=== PATIENT | female | born 1980 | race Caucasian/White ===

== ENCOUNTER 2016-10-26 09:14 | Emergency (ER) | payer OTHER ==
[2016-10-26 09:23] VITALS: BP 114/68
--- NOTE | 2016-10-26 09:31 | EDM.PDOC ---
ED HPI GENERAL MEDICAL PROBLEM - General Chief Complaint: Genitourinary Problem Stated Complaint: ? BLADDER INFECTION Time Seen by Provider: 10/26/16 09:27 Source of Information: Reports: Patient History Limitations: Reports: No Limitations - History of Present Illness INITIAL COMMENTS - FREE TEXT/NARRATIVE: 35 yo female who presents with burning, frequency and pain with urination since 5pm yesterday. States that pain and burning is at the end of her stream. Pressure with sitting that cause the sensation of having to urinate. 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 ED EXAM, RENAL/ - Physical Exam Exam: See Below Exam Limited By: No Limitations General Appearance: Alert, WD/WN, No Apparent Distress Respiratory/Chest: No Respiratory Distress, Lungs Clear, Normal Breath Sounds, No Accessory Muscle Use, Chest Non-Tender Cardiovascular: Normal Peripheral Pulses, Regular Rate, Rhythm, No Edema, No Gallop, No JVD, No Murmur, No Rub GI/Abdominal: Normal Bowel Sounds, Soft, No Organomegaly, No Distention, No Abnormal Bruit, No Mass, Tender (mild to suprapubic area) Back Exam: Normal Inspection (no CVA tenderness), Full Range of Motion, NT Neurological: Alert, Oriented, CN II-XII Intact, Normal Cognition, Normal Gait, Normal Reflexes, No Motor/Sensory Deficits Course - Vital Signs Last Recorded V/S: Last Vital Signs Temp 98.0 F 10/26/16 09:23 Pulse 74 10/26/16 09:23 Resp 18 10/26/16 09:23 BP 114/68 10/26/16 09:23 Pulse Ox 99 10/26/16 09:23 - Orders/Labs/Meds Labs: Laboratory Tests 10/26/16 10/26/16 Range/Units 09: 09:15 Urine Color Yellow (YELLOW) Urine Appearance Clear (CLEAR) Urine pH 6.0 (5.0-9.0) Ur Specific [place] <= 1.005 (1.005-1.030) Urine Protein Negative (NEGATIVE) Urine Glucose (UA) Negative (NEGATIVE) Urine Ketones Negative (NEGATIVE) Urine Occult Blood Moderate H (NEGATIVE) Urine Nitrite Negative (NEGATIVE) Urine Bilirubin Negative (NEGATIVE) Urine Urobilinogen 0.2 (0.2-1.0) mg/dL Ur Leukocyte Esterase Small H (NEGATIVE) Urine RBC 0-5 /HPF Urine WBC 5-10 H (0-5/HPF) /HPF Ur Epithelial Cells Rare /HPF Urine Bacteria Rare (0-FEW/HPF) /HPF Urine Mucus Not seen /LPF Urine HCG, Qual Negative Meds: Medications Discontinued Medications Generic Name Dose Route Start Last Admin Trade Name Freq PRN Reason Stop Dose Admin Nitrofurantoin Macrocrystals 100 mg 10/26/16 09:43 Macrobid PO 10/26/16 09:44 ONETIME ONE Phenazopyridine HCl 190 mg 10/26/16 09:43 Urinary Pain Relief PO 10/26/16 09:44 ONETIME ONE Departure - Departure Time of Disposition: 09:47 Disposition: Home, Self-Care 01 Condition: Good Clinical Impression: UTI, Urinary tract infectious disease - Discharge Information Instructions: Urinary Tract Infection, Adult, [id number] Forms: ED Department Discharge Additional Instructions: Continue to drink plenty of fluids. Take medication as prescribed. Return for worsening symptoms. Follow up with your PCP if no improvement in 5 days
[2016-10-26] MEDS ORDERED: Nitrofurantoin Monohydrate/Macrocrystalline 100 MG Cap PO ONE (09:43)
[2016-10-26] MEDS ORDERED: Phenazopyridine 95 MG Tab PO ONE (09:43)
== END 2016-10-26 09:52 | disposition home or self-care (01) ==
LOC: DL.ED 09:14
DX: N39.0 Urinary tract infection, site not specified (principal); Z88.1 Allergy status to other antibiotic agents; Z88.8 Allergy status to other drugs, medicaments and biological substances
CPT/HCPCS: 81001; 81025; 99283; A9270